=== PATIENT | male | born 1980 | race Two or more races ===

== ENCOUNTER 2017-02-20 10:22 | Inpatient (IN) | payer OTHER ==
[2017-02-20 10:33] VITALS: BMI 28.2
--- NOTE | 2017-02-20 11:56 | HP ---
CIWA Score - CIWA Score Nausea/Vomitin-No Nausea/No Vomiting Muscle Tremors: 4-Moderate,w/Arms Extend Anxiety: 3 Agitation: 3 Paroxysmal Sweats: 3 Orientation: 0-Oriented Tacttile Disturbances: 0-None Auditory Disturbances: 0-None Visual Disturbances: 0-None Headache: 2-Mild CIWA-Ar Total Score: 15 Admission ROS BHS - HPI Chief Complaint: I need to get cleaned or go to group home. I am on parole and dont want to go to group home. Allergies/Adverse Reactions: Allergies Allergy/AdvReac Type Severity Reaction Status Date / Time No Known Allergies Allergy Verified 02/20/17 11:01 History of Present Illness: pt is a 36yr old male with a history of alcohol dependence seeking detox for treatment. pt states he also uses gal but toxicology is negative. Exam Limitations: No Limitations - Ebola screening Have you traveled outside of the country in the last 21 days: No Have you had contact with anyone from an Ebola affected area: No Have you been sick,other than usual withdrawal symptoms: No Do you have a fever: No - Review of Systems Constitutional: Chills, Loss of Appetite, Changes in sleep, Unintentional Wgt. Loss EENT: reports: No Symptoms Reported Respiratory: reports: No Symptoms reported Cardiac: reports: No Symptoms Reported GI: reports: Poor Appetite, Poor Fluid Intake : reports: No Symptoms Reported Musculoskeletal: reports: Back Pain, Joint Pain, Muscle Pain Integumentary: reports: Flushing, Sweating Neuro: reports: Headache, Tingling, Tremors Endocrine: reports: Excessive Sweating, Flushing, Intolerance to Cold, Intolerance to Heat Hematology: reports: No Symptoms Reported Psychiatric: reports: Judgement Intact, Mood/Affect Appropiate, Orientated x3, Agitated, Anxious Other Systems: Reviewed and Negative Patient History - Patient Medical History Hx Anemia: No Hx Asthma: No Hx Chronic Obstructive Pulmonary Disease (COPD): No Hx Cancer: No Hx Cardiac Disorders: No Hx Congestive Heart Failure: No Hx Hypertension: No Hx Hypercholesterolemia: No Hx Pacemaker: No HX Cerebrovascular Accident: No Hx Seizures: No Hx Dementia: No Hx Diabetes: No Hx Gastrointestinal Disorders: No Hx Liver Disease: No Hx Genitourinary Disorders: No Hx Sexually Transmitted Disorders: No Hx Renal Disease (ESRD): No Hx Thyroid Disease: No Hx Human Immunodeficiency Virus (HIV): No Hx Hepatitis C: No Hx Depression: Yes Hx Suicide Attempt: Yes (10YRS AGO JUMP FROM WINDOW/ denies any S/H ideation today) Hx Bipolar Disorder: Yes (possible ) Hx Schizophrenia: No - Patient Surgical History Past Surgical History: Yes Hx Neurologic Surgery: No Hx Cataract Extraction: No Hx Cardiac Surgery: No Hx Lung Surgery: No Hx Breast Surgery: No Hx Breast Biopsy: No Hx Abdominal Surgery: No Hx Appendectomy: No Hx Cholecystectomy: No Hx Genitourinary Surgery: No Hx Section: (N/A) Hx Orthopedic Surgery: No Other Surgical History: testes removal on one side as a child, has diagnosed anomalies 8 years ago Anesthesia Reaction: No - PPD History Previous Implant?: No Documented Results: Negative w/o proof Implanted On Prior [facility] Admission?: Yes Date: 09/10/13 PPD to be Administered?: Yes - Reproductive History Patient is a Female of Child Bearing Age (11 -55 yrs old): No - Smoking Cessation Smoking history: Current every day smoker Have you smoked in the past 12 months: Yes Aproximately how many cigarettes per day: 20 Hx Chewing Tobacco Use: No Initiated information on smoking cessation: Yes 'Breaking Loose' booklet given: 02/20/17 - Substance & Tx. History Hx Alcohol Use: Yes Hx Substance Use: No Substance Use Type: Alcohol, Marijuana Hx Substance Use Treatment: Yes (last detox 2013 [facility] did not complete) - Substances Abused Alcohol Route: Oral Frequency: Daily Amount used: VODKA- 3PTS DAILY Age of first use: 17 Date of Last Use: 02/20/17 Heroin Route: Inhalation Frequency: Daily Amount used: 5BAGS Age of first use: 24 Date of Last Use: 02/19/17 K-2 Route: Smoking Frequency: Daily Amount used: 1BAG- $15 Age of first use: 31 Date of Last Use: 02/20/17 Family Disease History - Family Disease History Family Disease History: Respiratory: Mother, Brother (alcohol), Sister (alcohol) , Other: Grandparent (alcohol), Father (alcohol and drugs ), Brother, Sister Admission Physical Exam BHS - Vital Signs Vital Signs: Vital Signs - 24 hr 02/20/17 10:32 Temperature 98.1 F Pulse Rate 60 Respiratory 18 Rate Blood Pressure 100/60 - Physical General Appearance: Yes: Appropriately Dressed, Mild Distress, Tremorous, Irritable, Sweating, Anxious HEENTM: Yes: Hearing grossly Normal, Normal Voice Respiratory: Yes: Lungs Clear, Normal Breath Sounds, No Respiratory Distress Neck: Yes: No masses,lesions,Nodules Breast: Yes: Within Normal Limits Cardiology: Yes: Regular Rhythm, Regular Rate, S1, S2 Abdominal: Yes: Normal Bowel Sounds, Flat Genitourinary: Yes: Within Normal Limits Back: Yes: Normal Inspection Musculoskeletal: Yes: full range of Motion Extremities: Yes: Normal Capillary Refill, Normal Inspection, Non-Tender, Tremors Neurological: Yes: Fully Oriented, Alert, Normal Response Integumentary: Yes: Normal Color Lymphatic: Yes: Within Normal Limits - Diagnostic (1) Alcohol dependence with uncomplicated withdrawal Current Visit: Yes Status: Chronic (2) k 2 dependence Current Visit: Yes Status: Chronic Cleared for Admission [facility] - Detox or Rehab [facility] Level of Care: Medically Managed Detox Regimen/Protocol: Librium [facility] Breath Alcohol Content Breath Alcohol Content: 0 Urine Drug Screen - Results Drug Screen Negative: No Urine Drug Screen Results: THC-Marijuana
[2017-02-20] MEDS ORDERED: MENTHOL/PHENOL 1 EACH UD MM PRN (12:13)
[2017-02-20] MEDS ORDERED: guaiFENesin/D-METHORPHAN HB 10 ML UNIT-DOSE CUPS PO PRN (12:13)
[2017-02-20] MEDS ORDERED: chlordiazePOXIDE HCL 25 MG CAPSULE PO PRN (12:13)
[2017-02-20] MEDS ORDERED: P-EPHED 60MG/TRIPROLIDI 2.5MG TABLET PO PRN (12:13)
[2017-02-20] MEDS ORDERED: ACETAMINOPHEN 325 MG TABLET (FP) PO PRN (12:13)
[2017-02-20] MEDS ORDERED: IBUPROFEN 400 MG TABLET (FP) PO PRN (12:13)
[2017-02-20] MEDS ORDERED: MAGNESIUM CITRATE 300 ML BOTTLE PO PRN (12:13)
[2017-02-20] MEDS ORDERED: LOPERAMIDE HCL 2 MG CAPSULE PO PRN (12:13)
[2017-02-20] MEDS ORDERED: hydrOXYzine PAMOATE 50 MG CAPSULE (FP) PO PRN (12:13)
[2017-02-20] MEDS ORDERED: MAG HYDROX/AL HYDROX/SIMETH 30 ML UNIT-DOSE CUP PO PRN (12:13)
[2017-02-20] MEDS ORDERED: MAGNESIUM HYDROX 2400MG/30ML ORAL SUSPENSION 30 ML CUP PO PRN (12:13)
[2017-02-20] MEDS ORDERED: chlordiazePOXIDE HCL 25 MG CAPSULE PO ONE (12:29)
[2017-02-20] MEDS ORDERED: ALBUTEROL SO4 2.5/IPRATROPIUM 0.5 INH SOL 3 ML VIAL.NEB. NEB PRN (13:33)
[2017-02-20] MEDS ORDERED: ALBUTEROL SO4 2.5/IPRATROPIUM 0.5 INH SOL 3 ML VIAL.NEB. NEB ONE (13:38)
[2017-02-20] MEDS ORDERED: AZITHROMYCIN 1 GM PACKET PO ONE (13:39)
--- NOTE | 2017-02-20 14:26 | PN ---
BHS Progress Note Note: pt refused duoneb tx, pt denies a h/o asthma, duoneb d/c. encouraged fluids intake
[2017-02-20 16:56] LABS: URINE APPEARANCE SLCLOUDY; URINE BLOOD NEGATIVE (NEGATIVE); URINE COLOR AMBER; URINE GLUCOSE (UA) NEGATIVE (NEGATIVE); URINE KETONE TRACE (NEGATIVE); URINE LEUK ESTERASE NEGATIVE (NEGATIVE); URINE NITRITE NEGATIVE (NEGATIVE); URINE UROBILINOGEN 4.0 E.U/dl mg/dL (0.2-1.0)
[2017-02-20 17:03] LABS: URINE PROTEIN 1+ (NEGATIVE)
--- NOTE | 2017-02-20 17:03 | CONSULT ---
[facility] Psychiatric Consult - Data Date of interview: 02/20/17 Admission source: [facility] Identifying data: Pt. is a 36 year old male, single, father of four, unemployed and currently homeless. Pt. admitted to for heroin, marijuana, and alcohol dependence. Substance Abuse History: Following information confirmed with Mr. Townsend: - Smoking Cessation. Smoking history: Current every day smoker. Have you smoked in the past 12 months: Yes. Aproximately how many cigarettes per day: 20. Hx Chewing Tobacco Use: No. Initiated information on smoking cessation: Yes. ' Breaking Loose' booklet given: 02/20/17. - Substance & Tx. History. Hx Alcohol Use: Yes. Hx Substance Use: No. Substance Use Type: Alcohol, Marijuana. Hx Substance Use Treatment: Yes (last detox 2013 [facility] did not complete). - Substances Abused. Alcohol. Route: Oral. Frequency: Daily. Amount used: VODKA- 3PTS DAILY. Age of first use: 17. Date of Last Use: . Heroin. Route: Inhalation. Frequency: Daily. Amount used: 5BAGS. Age of first use: 24. Date of Last Use: 02/19/17. K-2. Route: Smoking. Frequency: Daily. Amount used: 1BAG- $15. Age of first use: 31. Date of Last Use: 02/20/17 Medical History: Denies. Psychiatric History: Pt. reports one psychiatric hospitalization at [facility] at the age of 14 for ADHD and behavior issues. Reports taking ritalin up until the age of 19. Pt. denies h/o OPC. States he was prescribed zoloft while in assisted last year but refuses to restart the medication. Pt. reports two suicide attempts. At age 22 patient attempted to jump out of a third floor window and at the age of 18 patient tied a sheet around his neck. Pt. currently denies suicidal and homicial ideation. Physical/Sexual Abuse/Trauma History: Denies. Mental Status Exam - Mental Status Exam Alert and Oriented to: Time, Place, Person Cognitive Function: Good Patient Appearance: Unkempt Mood: Euthymic Affect: Mood Congruent Patient Behavior: Appropriate, Cooperative Speech Pattern: Appropriate Voice Loudness: Normal Thought Process: Goal Oriented Thought Disorder: Not Present Hallucinations: Denies Suicidal Ideation: Denies Homicidal Ideation: Denies Insight/Judgement: Poor Sleep: Fair Appetite: Fair Muscle strength/Tone: Normal Gait/Station: Normal Psychiatric Findings - Problem List ([place] 1, 2,3) (1) Alcohol dependence with uncomplicated withdrawal Current Visit: Yes Status: Acute (2) k 2 dependence Current Visit: Yes Status: Acute (3) Heroin dependence Current Visit: Yes Status: Acute (4) PCP dependence Current Visit: Yes Status: Suspected Comment: Self reports. (5) Substance induced mood disorder Current Visit: No Status: Suspected - Initial Treatment Plan Initial Treatment Plan: Psychoeducation provided. Detoxification in progress. Observation.
[2017-02-20 17:06] LABS: EPI CELLS RARE /HPF (FEW); URINE MUCUS MANY
[2017-02-20] MEDS: chlordiazePOXIDE HCL 25 MG CAPSULE PO SCH ×2 (18:35→23:07)
[2017-02-20] MEDS ORDERED: THIAMINE HCL 100 MG TABLET (FP) PO SCH (22:00)
[2017-02-21] MEDS: chlordiazePOXIDE HCL 25 MG CAPSULE PO SCH ×2 (07:12→10:22)
--- NOTE | 2017-02-21 09:13 | EKG ---
Test Reason : Blood Pressure : / mmHG Vent. Rate : 062 BPM Atrial Rate : 062 BPM P-R Int : 180 ms QRS Dur : 100 ms QT Int : 414 ms P-R-T Axes : 062 030 054 degrees QTc Int : 420 ms NORMAL SINUS RHYTHM WITH SINUS ARRHYTHMIA NORMAL ECG NO PREVIOUS ECGS AVAILABLE Confirmed by KAI LADD, STEFANIA ([id number]) on 02/21/2017 9:12:46 AM Referred By: Confirmed By:STEFANIA QUINN MD
[2017-02-21 09:52] LABS: HEMATOCRIT 45.7 % (35.4-49); HEMOGLOBIN 14.8 GM/dL (11.7-16.9); MCH 29.1 pg (25.7-33.7); MCHC 32.4 g/dl (32.0-35.9); MEAN CELL VOLUME 89.6 fl (80-96); MEAN PLT VOLUME 11.5 fl (7.5-11.1); RDW 13.8 % (11.9-15.9); WHITE BLOOD COUNT 9.9 K/mm3 (4.0-10.0)
[2017-02-21] MEDS ORDERED: NICOTINE 21 MG/24 HOURS TOPICAL PATCH TD SCH (10:00)
[2017-02-21] MEDS ORDERED: PRENATAL VITAMINS W/ FOLIC ACID TABLET (FP) PO SCH (10:00)
[2017-02-21 10:02] LABS: ANION GAP 5 (8-16); BLOOD UREA NITROGEN 19 mg/dL (7-18); CALCIUM 8.5 mg/dL (8.5-10.1); CHLORIDE 107 mmol/L (98-107); CO2 28 mmol/L (21-32); GLUCOSE,RANDOM 84 mg/dL (74-106); POTASSIUM 4.3 mmol/L (3.5-5.1); SODIUM 140 mmol/L (136-145)
[2017-02-21 10:10] VITALS: BP 129/77; PULSE 64; TEMP 98.1
[2017-02-21 10:17] LABS: ALK PHOS 82 U/L (45-117); BILIRUBIN,TOTAL 0.5 mg/dL (0.2-1.0); SGOT/AST 22 U/L (15-37); SGPT/ALT 36 U/L (12-78); TOT PROT 7.2 g/dl (6.4-8.2)
--- NOTE | 2017-02-21 11:07 | PN ---
S CIWA - CIWA Score Nausea/Vomitin-No Nausea/No Vomiting Muscle Tremors: 4-Moderate,w/Arms Extend Anxiety: 3 Agitation: 3 Paroxysmal Sweats: 3 Orientation: 0-Oriented Tacttile Disturbances: 0-None Auditory Disturbances: 0-None Visual Disturbances: 0-None Headache: 0-None Present CIWA-Ar Total Score: 13 S Progress Note (SOAP) Subjective: sweats shakes irritable anxiety Objective: 02/21/17 11:06 Vital Signs Temperature 98.1 F 02/21/17 10:09 Pulse Rate 64 02/21/17 10:09 Respiratory Rate 18 02/21/17 10:09 Blood Pressure 129/77 02/21/17 10:09 O2 Sat by Pulse Oximetry (%) Laboratory Last Values WBC 9.9 K/mm3 (4.0-10.0) 02/21/17 06:00 RBC 5.10 M/mm3 (4.00-5.60) 02/21/17 06:00 Hgb 14.8 GM/dL (11.7-16.9) 02/21/17 06:00 Hct 45.7 % (35.4-49) 02/21/17 06:00 MCV 89.6 fl (80-96) 02/21/17 06:00 MCH 29.1 pg (25.7-33.7) 02/21/17 06:00 MCHC 32.4 g/dl (32.0-35.9) 02/21/17 06:00 RDW 13.8 % (11.9-15.9) 02/21/17 06:00 MPV 11.5 fl (7.5-11.1) H 02/21/17 06:00 Sodium 140 mmol/L (136-145) 02/21/17 06:00 Potassium 4.3 mmol/L (3.5-5.1) 02/21/17 06:00 Chloride 107 mmol/L (98-107) 02/21/17 06:00 Carbon Dioxide 28 mmol/L (21-32) 02/21/17 06:00 Anion Gap 5 (8-16) L 02/21/17 06:00 BUN 19 mg/dL (7-18) H D 02/21/17 06:00 Creatinine 1.0 mg/dL (0.7-1.3) 02/21/17 06:00 Creat Clearance w eGFR > 60 (>60) 02/21/17 06:00 Random Glucose 84 mg/dL (74-106) 02/21/17 06:00 Calcium 8.5 mg/dL (8.5-10.1) 02/21/17 06:00 Total Bilirubin 0.5 mg/dL (0.2-1.0) 02/21/17 06:00 AST 22 U/L (15-37) 02/21/17 06:00 ALT 36 U/L (12-78) D 02/21/17 06:00 Alkaline Phosphatase 82 U/L (45-117) 02/21/17 06:00 Total Protein 7.2 g/dl (6.4-8.2) 02/21/17 06:00 Albumin 4.0 g/dl (3.4-5.0) 02/21/17 06:00 Urine Color [place] 02/20/17 15:00 Urine Appearance Slcloudy 02/20/17 15:00 Urine pH 5.0 (5.0-8.0) 02/20/17 15:00 Ur Specific [place] 1.034 (1.001-1.035) 02/20/17 15:00 Urine Protein 1+ (NEGATIVE) H 02/20/17 15:00 Urine Glucose (UA) Negative (NEGATIVE) 02/20/17 15:00 Urine Ketones Trace (NEGATIVE) H 02/20/17 15:00 Urine Blood Negative (NEGATIVE) 02/20/17 15:00 Urine Nitrite Negative (NEGATIVE) 02/20/17 15:00 Urine Bilirubin 2.0 (NEGATIVE) 02/20/17 15:00 Urine Urobilinogen 4.0 e.u/dl mg/dL (0.2-1.0) 02/20/17 15:00 Ur Leukocyte Esterase Negative (NEGATIVE) 02/20/17 15:00 Urine WBC (Auto) 3 /hpf (3-5) 02/20/17 15:00 Urine RBC (Auto) 1 /hpf (0-3) 02/20/17 15:00 Ur Epithelial Cells Rare /HPF (FEW) 02/20/17 15:00 Urine Mucus Many 02/20/17 15:00 [email or web address] ambulating no acute distress Assessment: 02/21/17 11:06 withdrawal sx Plan: continue detox increase fluids
--- NOTE | 2017-02-21 12:36 | PN ---
S Progress Note Note: pt states I want to go home I dont want to be here anymore. Pt signed out AMA. automatic typewriter inspector tried to insist on pt to stay but refused to stay.
--- NOTE | 2017-02-21 12:37 | DS ---
[facility] Detox Discharge Summary Admission Date: 02/20/17 - History Present History: Alcohol Dependence - Physical Exam Results Vital Signs: Vital Signs Temperature 98.1 F 02/21/17 10:09 Pulse Rate 64 02/21/17 10:09 Respiratory Rate 18 02/21/17 10:09 Blood Pressure 129/77 02/21/17 10:09 O2 Sat by Pulse Oximetry (%) - Treatment Hospital Course: Responded well, Discharged Condition Good - Medication Discharge Medications: Ambulatory Orders NK [No Known Home Medication] 09/08/13 - Diagnosis (1) Alcohol dependence with uncomplicated withdrawal Current Visit: Yes Status: Chronic (2) k 2 dependence Current Visit: Yes Status: Chronic - AMA Did Patient Leave Against Medical Advice: Yes
[2017-02-21 13:30] LABS: PLATELET COUNT 149 K/MM3 (134-434)
[2017-02-21] MEDS ORDERED: chlordiazePOXIDE HCL 25 MG CAPSULE PO SCH (17:00)
[2017-02-22] MEDS ORDERED: chlordiazePOXIDE 5 MG CAPSULE PO SCH (17:00)
[2017-02-23] MEDS ORDERED: chlordiazePOXIDE HCL 10 MG CAPSULE PO SCH (17:00)
== END 2017-02-21 12:25 | disposition left against medical advice (07) | DRG 770 ==
LOC: YASAS 10:22 → Y6N 12:21
PROVIDERS: ADMIT Internal Medicine; ATTEND Internal Medicine
PROC: HZ2ZZZZ Detoxification Services for Substance Abuse Treatment (ICD-10-PCS; principal; 2017-02-20)
DX: F10.230 Alcohol dependence with withdrawal, uncomplicated (principal); F12.20 Cannabis dependence, uncomplicated; F16.20 Hallucinogen dependence, uncomplicated; F19.24 Other psychoactive substance dependence with psychoactive substance-induced mood disorder; F31.9 Bipolar disorder, unspecified; Z91.5 Personal history of self-harm
CPT/HCPCS: 36415; 80053; 81003; 81015; 85027; 86593; 93005; 93010

== ENCOUNTER 2017-03-05 13:57 | Inpatient (IN) | payer OTHER ==
[2017-03-05 15:58] VITALS: BMI 25.7
--- NOTE | 2017-03-05 19:32 | HP ---
Admission ROS S - [facility] Chief Complaint: i want to go to rehab Allergies/Adverse Reactions: Allergies Allergy/AdvReac Type Severity Reaction Status Date / Time No Known Allergies Allergy Verified 03/05/17 15:59 History of Present Illness: 36 years old male with long history of pcp nicotine dependence has bipolar ii is admitted to rehab Exam Limitations: No Limitations - Ebola screening Have you traveled outside of the country in the last 21 days: No (N) Have you had contact with anyone from an Ebola affected area: No Have you been sick,other than usual withdrawal symptoms: No Do you have a fever: No - Review of Systems Constitutional: Loss of Appetite, Unintentional Wgt. Loss, Unexplained wgt Loss EENT: reports: No Symptoms Reported Respiratory: reports: No Symptoms reported Cardiac: reports: No Symptoms Reported GI: reports: Poor Appetite : reports: No Symptoms Reported Musculoskeletal: reports: No Symptoms Reported Integumentary: reports: No Symptoms Reported Neuro: reports: No Symptoms reported Endocrine: reports: No Symptoms Reported Hematology: reports: No Symptoms Reported Psychiatric: reports: Judgement Intact, Orientated x3, Anxious, Depressed Other Systems: Reviewed and Negative Patient History - Patient Medical History Hx Anemia: No Hx Asthma: No Hx Chronic Obstructive Pulmonary Disease (COPD): No Hx Cancer: No Hx Cardiac Disorders: No Hx Congestive Heart Failure: No Hx Hypertension: No Hx Hypercholesterolemia: No Hx Pacemaker: No HX Cerebrovascular Accident: No Hx Seizures: No Hx Dementia: No Hx Diabetes: No Hx Gastrointestinal Disorders: No Hx Liver Disease: No Hx Genitourinary Disorders: No Hx Sexually Transmitted Disorders: No Hx Renal Disease (ESRD): No Hx Thyroid Disease: No Hx Human Immunodeficiency Virus (HIV): No Hx Hepatitis C: No Hx Depression: No Hx Suicide Attempt: Yes (10YRS AGO JUMP FROM WINDOW/ denies any S/H ideation today) Hx Bipolar Disorder: Yes (possible ) Hx Schizophrenia: No - Patient Surgical History Past Surgical History: Yes Hx Neurologic Surgery: No Hx Cataract Extraction: No Hx Cardiac Surgery: No Hx Lung Surgery: No Hx Breast Surgery: No Hx Breast Biopsy: No Hx Abdominal Surgery: No Hx Appendectomy: No Hx Cholecystectomy: No Hx Genitourinary Surgery: No Hx Section: (N/A) Hx Orthopedic Surgery: No Other Surgical History: testes removal on one side as a child, has diagnosed anomalies 8 years ago Anesthesia Reaction: No - PPD History Date: 09/10/13 - Smoking Cessation Smoking history: Current every day smoker Have you smoked in the past 12 months: Yes Aproximately how many cigarettes per day: 20 Cigars Per Day: 0 Hx Chewing Tobacco Use: No Initiated information on smoking cessation: Yes 'Breaking Loose' booklet given: 03/05/17 - Substance & Tx. History Hx Alcohol Use: No Hx Substance Use: Yes Substance Use Type: Marijuana - Substances Abused PCP Route: Smoking Frequency: Daily Amount used: 4 BLUNT Age of first use: 19 Date of Last Use: 02/26/17 Marijuana/Hashish Route: Smoking Frequency: Daily Amount used: 2 BLUNTS Age of first use: 15 Date of Last Use: 03/04/17 Family Disease History - Family Disease History Family Disease History: Respiratory: Mother, Brother (alcohol), Sister (alcohol) , Other: Grandparent (alcohol), Father (alcohol and drugs ), Brother, Sister Admission Physical Exam S - Vital Signs Vital Signs: Vital Signs - 24 hr 03/05/17 15:55 Temperature 96.3 F L Pulse Rate 72 Respiratory 20 Rate Blood Pressure 136/71 - Physical General Appearance: Yes: No Apparent Distress, Appropriately Dressed, Thin HEENTM: Yes: Hearing grossly Normal, Normal ENT Inspection, Normocephalic, Normal Voice Respiratory: Yes: Chest Non-Tender, Lungs Clear, Normal Breath Sounds, No Respiratory Distress, No Accessory Muscle Use Neck: Yes: Supple, Trachea in good position Breast: Yes: Breasts Symetrical Cardiology: Yes: Regular Rhythm, Regular Rate, S1, S2 Abdominal: Yes: Normal Bowel Sounds, Non Tender, Soft Genitourinary: Yes: Within Normal Limits Back: Yes: Normal Inspection Musculoskeletal: Yes: full range of Motion, Gait Steady Extremities: Yes: Normal Inspection, Normal Range of Motion, Non-Tender Neurological: Yes: Fully Oriented, Alert, Motor Strength 5/5, Normal Mood/Affect , Normal Response Integumentary: Yes: Warm Lymphatic: Yes: Within Normal Limits - Diagnostic (1) Cannabis dependence, uncomplicated Current Visit: Yes Status: Acute (2) Nicotine dependence Current Visit: Yes Status: Acute Qualifiers: Nicotine product type: cigarettes Substance use status: in withdrawal Qualified Code(s): F17.213 - Nicotine dependence, cigarettes, with withdrawal (3) Bipolar II disorder Current Visit: Yes Status: Suspected (4) Weight loss Current Visit: Yes Status: Acute (5) k 2 dependence Current Visit: Yes Status: Acute (6) PCP dependence Current Visit: Yes Status: Acute Comment: Self reports. Cleared for Admission [facility] - Detox or Rehab [facility] Level of Care: Observation Bed Detox Regimen/Protocol: Not Applicable Claeared for Rehab Admission: Yes [facility] Breath Alcohol Content Breath Alcohol Content: 0 Urine Drug Screen - Results Drug Screen Negative: No Urine Drug Screen Results: THC-Marijuana, OPI-Opiates, PCP-Phencyclidine, BZO- Benzodiazepines Inpatient Rehab Admission - Initial Determination Are CD services needed?: Yes Free of communicable disease: Yes Not in need of hospitalization: Yes - Rehab Admission Criteria Previous failed treatment: Yes Poor recovery environment: Yes Comorbidities: Yes Lacks judgement: No Patient is meeting Inpatient Rehab admission criteria:: Yes
[2017-03-05] MEDS ORDERED: MENTHOL/PHENOL 1 EACH UD MM PRN (19:33)
[2017-03-05] MEDS ORDERED: NICOTINE POLACRILEX 4 MG GUM BUC PRN (19:33)
[2017-03-05] MEDS ORDERED: guaiFENesin/D-METHORPHAN HB 10 ML UNIT-DOSE CUPS PO PRN (19:33)
[2017-03-05] MEDS ORDERED: LOPERAMIDE HCL 2 MG CAPSULE PO PRN (19:33)
[2017-03-05] MEDS ORDERED: MAGNESIUM HYDROX 2400MG/30ML ORAL SUSPENSION 30 ML CUP PO PRN (19:33)
[2017-03-05] MEDS ORDERED: IBUPROFEN 400 MG TABLET (FP) PO PRN (19:33)
[2017-03-05] MEDS ORDERED: ACETAMINOPHEN 325 MG TABLET (FP) PO PRN (19:33)
[2017-03-05] MEDS ORDERED: P-EPHED 60MG/TRIPROLIDI 2.5MG TABLET PO PRN (19:33)
[2017-03-05] MEDS ORDERED: MAGNESIUM CITRATE 300 ML BOTTLE PO PRN (19:33)
[2017-03-05] MEDS ORDERED: MAG HYDROX/AL HYDROX/SIMETH 30 ML UNIT-DOSE CUP PO PRN (19:33)
[2017-03-05] MEDS ORDERED: TUBERCULIN PPD 5 TU/0.1ML VIAL ID ONE (20:52)
[2017-03-05] MEDS: THIAMINE HCL 100 MG TABLET (FP) PO SCH (22:15)
[2017-03-05 23:59] LABS: URINE APPEARANCE CLEAR; URINE BILIRUBIN NEGATIVE (NEGATIVE); URINE BLOOD NEGATIVE (NEGATIVE); URINE COLOR DKYELLOW; URINE GLUCOSE (UA) NEGATIVE (NEGATIVE); URINE KETONE TRACE (NEGATIVE); URINE LEUK ESTERASE NEGATIVE (NEGATIVE); URINE NITRITE NEGATIVE (NEGATIVE); URINE PROTEIN NEGATIVE (NEGATIVE)
--- NOTE | 2017-03-06 10:07 | EKG ---
Test Reason : Blood Pressure : / mmHG Vent. Rate : 058 BPM Atrial Rate : 058 BPM P-R Int : 190 ms QRS Dur : 096 ms QT Int : 404 ms P-R-T Axes : 052 041 051 degrees QTc Int : 396 ms SINUS BRADYCARDIA OTHERWISE NORMAL ECG WHEN COMPARED WITH ECG OF 20-FEB-2017 14:13, NO SIGNIFICANT CHANGE WAS FOUND Confirmed by STEFANIA QUINN MD ([id number]) on 03/06/2017 10:06:52 AM Referred By: Confirmed By:STEFANIA QUINN MD
[2017-03-06] MEDS: PRENATAL VITAMINS W/ FOLIC ACID TABLET (FP) PO SCH (10:12)
[2017-03-06] MEDS: NICOTINE 21 MG/24 HOURS TOPICAL PATCH TD SCH (10:13)
[2017-03-06 10:25] LABS: CHLORIDE 106 mmol/L (98-107); POTASSIUM 4.2 mmol/L (3.5-5.1); SODIUM 141 mmol/L (136-145)
[2017-03-06 10:36] LABS: HEMATOCRIT 43.1 % (35.4-49); HEMOGLOBIN 13.9 GM/dL (11.7-16.9); MCH 28.3 pg (25.7-33.7); MCHC 32.2 g/dl (32.0-35.9); MEAN CELL VOLUME 87.8 fl (80-96); MEAN PLT VOLUME 11.1 fl (7.5-11.1); PLATELET COUNT 148 K/MM3 (134-434); RBC 4.91 M/mm3 (4.00-5.60); RDW 13.1 % (11.9-15.9); WHITE BLOOD COUNT 5.9 K/mm3 (4.0-10.0)
[2017-03-06 11:26] LABS: ALBUMIN 3.9 g/dl (3.4-5.0); ALK PHOS 68 U/L (45-117); ANION GAP 9 (8-16); BILIRUBIN,TOTAL 0.5 mg/dL (0.2-1.0); BLOOD UREA NITROGEN 16 mg/dL (7-18); CO2 26 mmol/L (21-32); GLUCOSE,RANDOM 79 mg/dL (74-106); SGOT/AST 15 U/L (15-37); SGPT/ALT 24 U/L (12-78); TOT PROT 6.7 g/dl (6.4-8.2)
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
[2017-03-06] MEDS: THIAMINE HCL 100 MG TABLET (FP) PO SCH (21:20)
[2017-03-07] MEDS: PRENATAL VITAMINS W/ FOLIC ACID TABLET (FP) PO SCH (09:56)
[2017-03-07] MEDS: NICOTINE 21 MG/24 HOURS TOPICAL PATCH TD SCH (09:57)
[2017-03-07] MEDS: THIAMINE HCL 100 MG TABLET (FP) PO SCH (21:30)
[2017-03-08] MEDS: NICOTINE 21 MG/24 HOURS TOPICAL PATCH TD SCH (10:08)
[2017-03-08] MEDS: PRENATAL VITAMINS W/ FOLIC ACID TABLET (FP) PO SCH (10:08)
--- NOTE | 2017-03-08 13:48 | PN ---
Psychiatric Progress Note Vital Signs: Vital Signs Period Temp Pulse Resp BP Sys/Montano Pulse Ox Last 24 Hr 98.4 F 60 18-18 120/80 Date of Session: 03/08/17 Chief Complaint:: progress update HPI: Patient is addressing cocaine, cannabis, PCP, K2 , nicotine dependence comorbid Bipolar II. ROS: WNL Current Medications: Active Medications Generic Name Dose Route Start Last Admin Trade Name Freq PRN Reason Stop Dose Admin Acetaminophen 650 mg 03/05/17 19:33 Tylenol - PO Q4H PRN FEVER Al Hydroxide/Mg Hydroxide 30 ml 03/05/17 19:33 Mylanta Oral Suspension - PO Q6H PRN DYSPEPSIA Bupropion HCl 100 mg 03/09/17 07:00 Wellbutrin - PO AM BARRETT Eucalyptus/Menthol/Phenol/Sorbitol 1 each 03/05/17 19:33 Cepastat Lozenge - MM Q4H PRN SORE THROAT Guaifenesin 10 ml 03/05/17 19:33 Robitussin Dm - PO Q6H PRN COUGH Ibuprofen 400 mg 03/05/17 19:33 Motrin - PO Q6H PRN Pain level 4-6 Loperamide HCl 4 mg 03/05/17 19:33 Imodium - PO Q6H PRN DIARRHEA Magnesium Citrate 300 ml 03/05/17 19:33 Citroma - PO Q48H PRN CONSTIPATION Magnesium Hydroxide 30 ml 03/05/17 19:33 Milk Of Magnesia - PO DAILY PRN CONSTIPATION Nicotine 21 mg 03/06/17 10:00 03/08/17 10:08 Nicoderm Patch - TD 21 mg DAILY BARRETT Administration Nicotine Polacrilex 4 mg 03/05/17 19:33 03/06/17 14:52 Nicorette Gum - BUC 4 mg Q2H PRN Administration NICOTINE REPLACEMENT RX Multivit/Folic Acid/Iron 1 tab 03/06/17 10:00 03/08/17 10:08 Vitamins ([facility]) - PO 1 tab DAILY BARRETT Administration Pseudoephedrine/Triprolidine 1 combo 03/05/17 19:33 Actifed - PO TID PRN NASAL CONGESTION Quetiapine Fumarate 50 mg 03/08/17 22:00 Seroquel - PO HS BARRETT Quetiapine Fumarate 25 mg 03/08/17 13:35 Seroquel - PO Q4H PRN AGITATION Thiamine HCl 100 mg 03/05/17 22:00 03/07/17 21:30 Vitamin B1 - PO 100 mg HS BARRETT Administration Current Side Effect: No Lab tests ordered: No Lab tests reviewed: Yes Provider note:: Reviewed the chart, [facility] Terrance's admission notes appreciated, patient was seen today, reports has been hearing voices since his childhood, states he told his mother who did not belive him, now voices more intence and destructful, they come out his head, feeling very uncomfortable, reports he feels as well depressed and anxious, irritable and having mood swings, reports past treatment with zoloft for 4-5 weeks, does not feel was effective. Two psychiatric hospitalizations in the past, states he was using drugs cocaine, K2 , PCP and marijuana to "medicate " self. His sleep is interrupted, next day more depressed and anxious. Discussed indications and properties of Seroquel and Wellbutrin with the patient he agreed to start treatment, will start with Wellbutrin 100 mg po hs, Seroquel 50 mg po hs and 25 mg po PRN q4h, will adjust medications when indicated, continue to monitor progress. Supportive therapy provided. Total face to face time:: 35 Mental Status Exam - Mental Status Exam Alert and Oriented to: Time, Place, Person Cognitive Function: Grossly Intact Patient Appearance: Well Groomed Mood: Apathetic, Depressed, Sad, Anxious Affect: Mood Congruent Patient Behavior: Appropriate, Cooperative Speech Pattern: Clear, Appropriate Voice Loudness: Normal Thought Disorder: Not Present Hallucinations: Auditory Suicidal Ideation: Denies Homicidal Ideation: Denies Insight/Judgement: Fair Sleep: Poorly, Difficulty falling asleep Appetite: Fair Muscle strength/Tone: Normal Psychiatric Treatment Plan - Problem List (1) Cocaine dependence Current Visit: Yes (2) Cannabis dependence Current Visit: Yes (3) Nicotine dependence Current Visit: Yes Qualifiers: Nicotine product type: cigarettes Substance use status: in withdrawal Qualified Code(s): F17.213 - Nicotine dependence, cigarettes, with withdrawal (4) PCP dependence Current Visit: Yes Comment: Self reports. (5) k 2 dependence Current Visit: Yes (6) Bipolar II disorder Current Visit: No Comment: Self reports.
[2017-03-08] MEDS: QUEtiapine FUMARATE 25 MG TABLET (FP) PO PRN (14:41)
[2017-03-08] MEDS: THIAMINE HCL 100 MG TABLET (FP) PO SCH (21:49)
[2017-03-08] MEDS: QUEtiapine FUMARATE 50 MG TABLET PO SCH (21:49)
[2017-03-09] MEDS: buPROPion HCL 100 MG TABLET PO SCH (06:26)
[2017-03-09] MEDS: QUEtiapine FUMARATE 25 MG TABLET (FP) PO PRN ×3 (10:00→19:30)
[2017-03-09] MEDS: PRENATAL VITAMINS W/ FOLIC ACID TABLET (FP) PO SCH (10:00)
[2017-03-09] MEDS: NICOTINE 21 MG/24 HOURS TOPICAL PATCH TD SCH (10:01)
[2017-03-09] MEDS: QUEtiapine FUMARATE 50 MG TABLET PO SCH (21:19)
[2017-03-09] MEDS: THIAMINE HCL 100 MG TABLET (FP) PO SCH (21:19)
[2017-03-10 06:59] VITALS: BP 122/89; PULSE 55; TEMP 97.2
[2017-03-10] MEDS: buPROPion HCL 100 MG TABLET PO SCH (07:03)
[2017-03-10] MEDS: PRENATAL VITAMINS W/ FOLIC ACID TABLET (FP) PO SCH (10:39)
[2017-03-10] MEDS: NICOTINE 21 MG/24 HOURS TOPICAL PATCH TD SCH (10:39)
--- NOTE | 2017-03-11 10:33 | PN ---
S Progress Note Note: patient walked away from the unit on 03/10/17 please see medical staff notes.
== END 2017-03-10 09:15 | disposition left against medical advice (07) | DRG 770 ==
LOC: YASAS 13:57 → Y5N 16:29
PROVIDERS: ADMIT Psychiatry & Neurology Psychiatry; ATTEND Psychiatry & Neurology Psychiatry
PROC: HZ42ZZZ Group Counseling for Substance Abuse Treatment, Cognitive-Behavioral (ICD-10-PCS; principal; 2017-03-05)
DX: F14.20 Cocaine dependence, uncomplicated (principal); F16.20 Hallucinogen dependence, uncomplicated; F12.20 Cannabis dependence, uncomplicated; F17.213 Nicotine dependence, cigarettes, with withdrawal; F19.24 Other psychoactive substance dependence with psychoactive substance-induced mood disorder; F33.9 Major depressive disorder, recurrent, unspecified; Z91.5 Personal history of self-harm
CPT/HCPCS: 36415; 80053; 81003; 85027; 86593; 87389; 93005; 93010